=== PATIENT | female | born 1955 | race Caucasian/White ===

== ENCOUNTER 2021-02-01 17:34 | Emergency (ER) | payer MEDICARE ==
--- NOTE | 2021-02-01 18:27 | EDM.PDOC ---
ED HPI GENERAL MEDICAL PROBLEM - General Chief Complaint: Gastrointestinal Problem Stated Complaint: ULCERATIVE COLITIS FLARE UP Time Seen by Provider: 02/01/21 18:45 Source of Information: Reports: Patient History Limitations: Reports: No Limitations - History of Present Illness INITIAL COMMENTS - FREE TEXT/NARRATIVE: Patient presents emergency room today secondary to abdominal pain vomiting and diarrhea as well as chills she denies any fever she states that abdominal pain returned yesterday has had nausea vomiting and dry heaves since return of abdominal discomfort less than 10 episodes per patient's report poor intake patient states that she is stable still voiding without any difficulty patient states that currently she is not having any pain and when she had pain prior to arrival that really was not hurting much she would not rated. Of significance patient was seen 3 times in the ER in the [facility] once at [place] twice at [facility] before finally being admitted on the third ER visit at [facility] she was in the hospital per 's report for 1 week on IV antibiotics and IV fluids she was discussed charged on 17 August with extended prednisone taper that ended around 05 October. Other significant issues is that patient has ulcerative colitis for many years she has been receiving infusions currently her infusions are approximately every 2 months those are at [place] is a suburb of the [facility] they do not know the name of the infusion PMHulcerative colitis, appendix carcinoma (2012) Past surgical history an appendectomy Meds-lealda, 6-MP Allergies--PCN/Amox tob-former EtOH-wine on occassion drugs--denies Onset Date: 01/31/21 Duration: Waxing/Waning Location: Reports: Abdomen - Related Data Allergies Allergy/AdvReac Type Severity Reaction Status Date / Time Penicillins Allergy Hives Verified 02/01/21 17:51 Home Meds: Home Meds Mercaptopurine 50 gm PO DAILY 02/01/21 [History] Mesalamine [Lialda] 4 tab PO DAILY 02/01/21 [History] Past Medical History HEENT History: Reports: Impaired Vision Gastrointestinal History: Reports: Other (See Below) Other Gastrointestinal History: ulcerative colitis Genitourinary History: Reports: None [employer] History: Reports: Neurological History: Reports: Alzheimers Disease - Infectious Disease History Infectious Disease History: Reports: Chicken Pox, Measles, Mumps, Shingles - Past Surgical History Head Surgeries/Procedures: Reports: None HEENT Surgical History: Reports: None GI Surgical History: Reports: Appendectomy Female Surgical History: Reports: Hysterectomy Neurological Surgical History: Reports: None Dermatological Surgical History: Reports: None Social & Family History - Tobacco Use Tobacco Use Status *Q: Never Tobacco User Second Hand Smoke Exposure: No - Caffeine Use Caffeine Use: Reports: None - Recreational Drug Use Recreational Drug Use: No ED ROS GENERAL - Review of Systems Review Of Systems: Comprehensive ROS is negative, except as noted in HPI. Constitutional: Reports: Chills. Denies: Fever HEENT: Reports: No Symptoms Respiratory: Reports: No Symptoms Cardiovascular: Reports: No Symptoms Endocrine: Reports: No Symptoms GI/Abdominal: Reports: Abdominal Pain, Diarrhea, Nausea, Vomiting, Other (Not really decreased appetite or anorexia but inability to keep food or fluids down specifically states she has only been able to drink half a bottle of water today) : Reports: No Symptoms Musculoskeletal: Reports: No Symptoms Skin: Reports: No Symptoms Neurological: Reports: No Symptoms Psychiatric: Reports: No Symptoms Hematologic/Lymphatic: Reports: No Symptoms Immunologic: Reports: No Symptoms ED EXAM, GI/ABD - Physical Exam Exam: See Below Exam Limited By: No Limitations General Appearance: Alert, WD/WN, Mild Distress (She states she is just tired of being sick all the time) Eyes: Bilateral: Normal Appearance, EOMI Ears: Normal External Exam, Hearing Grossly Normal Nose: Normal Inspection Throat/Mouth: Normal Inspection, Normal Lips, Normal Gums, Normal Oropharynx, No Airway Compromise Head: Atraumatic, Normocephalic Neck: Normal Inspection, Supple, Non-Tender, Full Range of Motion. No: Lymphadenopathy (R), Lymphadenopathy (L), Thyromegaly Respiratory/Chest: No Respiratory Distress, Lungs Clear, Normal Breath Sounds, No Accessory Muscle Use, Chest Non-Tender Cardiovascular: Normal Peripheral Pulses, Regular Rate, Rhythm, No Edema, No Murmur GI/Abdominal Exam: Soft, Non-Tender, Abnormal Bowel Sounds (Hypoactive). No: Normal Bowel Sounds (Decreased bowel sounds), Guarding, Rigid, Rebound (Female) Exam: Deferred Rectal (Female) Exam: Deferred Back Exam: Normal Inspection, Full Range of Motion Extremities: Normal Inspection, Normal Range of Motion, Non-Tender, No Pedal Edema, Normal Capillary Refill Neurological: Alert, Oriented, CN II-XII Intact, Normal Cognition, Normal Gait, No Motor/Sensory Deficits Psychiatric: Normal Affect, Normal Mood Skin Exam: Warm, Dry, Intact, Normal Color Lymphatic: No Adenopathy Course - Vital Signs Text/Narrative:: 2031--abs have been reviewed noted for a WBC5.3 with 91% neutrophils and 5% bands otherwise CBC is unremarkable complete metabolic panel is within normal limits other than mild decrease in sodium and a137. She has received 1 L IV fluids Pepcid and Zofran at this time secondary to elevated neutrophils and bands will obtain obtain CT abd/pelvis given patient UC history and recent hospitalization in July 2020. Was discussed with patient and spouse at bedside who verbalized understanding agreement 2255--room to discuss with patient and spouse recommendation for admission for IV fluids IV antibiotics and IV steroids due to ulcerative colitis flare. Beds are available at this facility thus transfer is recommended. Given option of local facilities to include [facility] versus going back to the [facility] where they are from patient spouse both prefer to go back to [facility] where she has previously been admitted for the same. Discussed with them option for self transport versus ambulance and spouse states that he will take her down the [facility] if admission is available at that location [id number]--call to [place] transfer line, no beds available at [facility]--request that we hold patient in the ER and try again in the morning 2314--in room to d/w patient/spouse, she is stating she wants to just go home. d/w them issues of transfer/no beds available. after discussion have come to treatment agreement that she has agreed to stay until received dose of IV abx & steroid--then will d/c home with the oral ABX/steroids and they should contact GI tomorrow regarding tonights ER visit Last Recorded V/S: Last Vital Signs Temp 98.3 F 02/01/21 17:57 Pulse 105 H 02/01/21 20:37 Resp 16 02/01/21 17:57 BP 110/61 02/01/21 20:37 Pulse Ox 95 02/01/21 20:37 - Orders/Labs/Meds Orders: Active Orders 24 hr Category Date Time Status Iopamidol [Isovue-300 (61%)] Med 02/01/21 21:00 Active 100 ml IV . DIRECTED Levofloxacin/Dextrose 5%-Water [Levaquin in D5W 750 MG/ Med 02/01/21 22:38 Active 150 ML] 750 mg Premix Bag 1 bag IV ONETIME Ondansetron [Zofran] Med 02/01/21 18:51 Active 4 mg IVPUSH Q4H PRN Sodium Chloride 0.9% [Normal Saline] 1,000 ml Med 02/01/21 22:45 Active IV ASDIRECTED Sodium Chloride 0.9% [Normal Saline] 80 ml Med 02/01/21 21:00 Active IV ASDIRECTED Sodium Chloride 0.9% [Saline Flush] Med 02/01/21 18:51 Active 10 ml FLUSH ASDIRECTED PRN Saline Lock Insert [OM.PC] Routine Oth 02/01/21 18:51 Ordered Medication Orders Sodium Chloride (Normal Saline) 80 mls @ 3 mls/sec IV ASDIRECTED [facility] Last Admin: 02/01/21 21:03 Dose: 3 mls/sec Documented by: KIRK Levofloxacin/Dextrose 750 mg/ (Premix) 150 mls @ 100 mls/hr IV ONETIME ONE Stop: 02/02/21 00:07 Last Admin: 02/01/21 23:31 Dose: 100 mls/hr Documented by: VENU Sodium Chloride (Normal Saline) 1,000 mls @ 125 mls/hr IV ASDIRECTED [facility] Last Admin: 02/01/21 22:45 Dose: 125 mls/hr Documented by: VENU Iopamidol (Iopamidol 612 Mg/Ml 100 Ml Bottle) 100 ml IV . DIRECTED [facility] Last Admin: 02/01/21 21:03 Dose: 100 ml Documented by: KIRK Ondansetron HCl (Ondansetron 4 Mg/2 Ml Sdv) 4 mg IVPUSH Q4H PRN PRN Reason: Nausea/Vomiting Last Admin: 02/01/21 19:13 Dose: 4 mg Documented by: VENU Sodium Chloride (Sodium Chloride 0.9% 10 Ml Syringe) 10 ml FLUSH ASDIRECTED PRN PRN Reason: Keep Vein Open Last Admin: 02/01/21 19:13 Dose: 10 ml Documented by: VENU Labs: Laboratory Tests 02/01/21 02/01/21 02/01/21 Range/Units 18:50 18:50 20:06 WBC 5.3 (4.5-11.0) K/uL RBC 4.48 (3.30-5.50) M/uL Hgb 13.3 (12.0-15.0) g/dL Hct 41.1 (36.0-48.0) % MCV 92 (80-98) fL MCH 30 (27-31) pg MCHC 32 (32-36) % Plt Count 173 (150-400) K/uL Add Manual Diff Yes Neutrophils % (Manual) 91 H (36-66) % Band Neutrophils % 5 (5-11) % Lymphocytes % (Manual) 2 L (24-44) % Monocytes % (Manual) 2 (2-6) % Sodium 137 L (140-148) mmol/L Potassium 3.7 (3.6-5.2) mmol/L Chloride 100 (100-108) mmol/L Carbon Dioxide 35 H (21-32) mmol/L Anion Gap 5.7 (5.0-14.0) mmol/L BUN 12 (7-18) mg/dL Creatinine 0.9 (0.6-1.0) mg/dL Est Cr Clr Drug Dosing 54.88 mL/min Estimated GFR (MDRD) > 60 (>60) Glucose 116 H (74-106) mg/dL Calcium 8.5 (8.5-10.1) mg/dL Total Bilirubin 0.4 (0.2-1.0) mg/dL AST 18 (15-37) U/L ALT 28 (12-78) U/L Alkaline Phosphatase 66 (46-116) U/L Total Protein 7.4 (6.4-8.2) g/dL Albumin 3.2 L (3.4-5.0) g/dL Globulin 4.2 H (2.3-3.5) g/dL Albumin/Globulin Ratio 0.8 L (1.2-2.2) Amylase 26 (25-115) U/L Lipase 66 L (73-393) U/L Urine Color Yellow (YELLOW) Urine Appearance Slightly cloudy A (CLEAR) Urine pH 5.5 (5.0-8.0) Ur Specific [place] >= 1.030 (1.008-1.030) Urine Protein 100 H (NEGATIVE) mg/dL Urine Glucose (UA) Negative (NEGATIVE) mg/dL Urine Ketones Negative (NEGATIVE) mg/dL Urine Occult Blood Negative (NEGATIVE) Urine Nitrite Negative (NEGATIVE) Urine Bilirubin Negative (NEGATIVE) Urine Urobilinogen 0.2 (0.2-1.0) EU/dL Ur Leukocyte Esterase Negative (NEGATIVE) Urine RBC 0-5 (0-5) Urine WBC 0-5 (0-5) Ur Epithelial Cells Few Amorphous Sediment Rare Urine Bacteria Occasional Urine Mucus Numerous Urine Other See note Meds: Medications Generic Name Dose Route Start Last Admin Trade Name Latonya PRN Reason Stop Dose Admin Sodium Chloride 80 mls @ 3 mls/sec 02/01/21 21:00 02/01/21 21:03 Normal Saline IV 3 mls/sec ASDIRECTED KENDELL Administration Levofloxacin/Dextrose 750 mg/ 150 mls @ 100 mls/hr 02/01/21 22:38 02/01/21 23:31 Premix IV 02/02/21 00:07 100 mls/hr ONETIME ONE Administration Sodium Chloride 1,000 mls @ 125 mls/hr 02/01/21 22:45 02/01/21 22:45 Normal Saline IV 125 mls/hr ASDIRECTED KENDELL Administration Iopamidol 100 ml 02/01/21 21:00 02/01/21 21:03 Iopamidol 612 Mg/Ml 100 Ml Bottle IV 100 ml . DIRECTED KENDELL Administration Ondansetron HCl 4 mg 02/01/21 18:51 02/01/21 19:13 Ondansetron 4 Mg/2 Ml Sdv IVPUSH 4 mg Q4H PRN Administration Nausea/Vomiting Sodium Chloride 10 ml 02/01/21 18:51 02/01/21 19:13 Sodium Chloride 0.9% 10 Ml Syringe FLUSH 10 ml ASDIRECTED PRN Administration Keep Vein Open Discontinued Medications Generic Name Dose Route Start Last Admin Trade Name Latonya PRN Reason Stop Dose Admin Famotidine 20 mg 02/01/21 18:51 02/01/21 19:13 Famotidine 20 Mg/2 Ml Sdv IVPUSH 02/01/21 18:52 20 mg ONETIME ONE Administration Sodium Chloride 1,000 mls @ 999 mls/hr 02/01/21 18:51 02/01/21 18:59 Normal Saline IV 02/01/21 19:51 999 mls/hr .BOLUS ONE Administration Methylprednisolone Sodium Succinate 125 mg 02/01/21 22:40 02/01/21 23:27 Methylprednisolone Sodium Succinate 125 Mg/2 Ml Sdv IVPUSH 02/01/21 22:41 125 mg ONETIME ONE Administration - Radiology Interpretation Free Text/Narrative:: CT abdomen pelvis final radiology report impression colitis involving the descending colon to the rectum consistent with an ulcerative colitis flare to multiple hepatic cyst and a few small renal left renal cysts. Please see complete report for full details CT Results Date: 02/01/21 CT Results Time: 22:56 Departure - Departure Time of Disposition: 00:02 Disposition: Home, Self-Care 01 Condition: Good Clinical Impression: Acute ulcerative colitis - Discharge Information *PRESCRIPTION DRUG MONITORING PROGRAM REVIEWED*: Not Applicable *COPY OF PRESCRIPTION DRUG MONITORING REPORT IN PATIENT SAIMA: Not Applicable Instructions: Dehydration, Adult, [id number], Ulcerative Colitis, Adult Referrals: PCP,None [Primary Care Provider] - Forms: ED Department Discharge Additional Instructions: Antibiotics and prednisone have been ordered--we will need to take your prescriptions to the pharmacy to have filled Is recommended that you contact your fruit inspector tomorrow for ER follow up Clear liquid diet, advance slowly as tolerated Sepsis Event Note (ED) - Evaluation Sepsis Screening Result: No Definite Risk - Focused Exam Vital Signs: Vital Signs Temp Pulse Resp BP Pulse Ox 02/01/21 20:37 105 H 110/61 95 02/01/21 17:57 98.3 F 105 H 16 117/67 97 02/01/21 17:50 98.3 F 105 H 16 117/67 97 - My Orders Last 24 Hours: My Active Orders 02/01/21 18:51 Ondansetron [Zofran] 4 mg IVPUSH Q4H PRN Sodium Chloride 0.9% [Saline Flush] 10 ml FLUSH ASDIRECTED PRN Saline Lock Insert [OM.PC] Routine 02/01/21 21:00 Iopamidol [Isovue-300 (61%)] 100 ml IV . DIRECTED Sodium Chloride 0.9% [Normal Saline] 80 ml IV ASDIRECTED 02/01/21 22:38 Levofloxacin/Dextrose 5%-Water [Levaquin in D5W 750 MG/150 ML] 750 mg Premix Bag 1 bag IV ONETIME 02/01/21 22:45 Sodium Chloride 0.9% [Normal Saline] 1,000 ml IV ASDIRECTED - Assessment/Plan Last 24 Hours: My Active Orders 02/01/21 18:51 Ondansetron [Zofran] 4 mg IVPUSH Q4H PRN Sodium Chloride 0.9% [Saline Flush] 10 ml FLUSH ASDIRECTED PRN Saline Lock Insert [OM.PC] Routine 02/01/21 21:00 Iopamidol [Isovue-300 (61%)] 100 ml IV . DIRECTED Sodium Chloride 0.9% [Normal Saline] 80 ml IV ASDIRECTED 02/01/21 22:38 Levofloxacin/Dextrose 5%-Water [Levaquin in D5W 750 MG/150 ML] 750 mg Premix Bag 1 bag IV ONETIME 02/01/21 22:45 Sodium Chloride 0.9% [Normal Saline] 1,000 ml IV ASDIRECTED
[2021-02-01] MEDS ORDERED: Sodium Chloride 0.9% 10 ML Syringe FLUSH PRN (18:51)
[2021-02-01] MEDS ORDERED: Famotidine 20 MG/2 ML SDV IVPUSH ONE (18:51)
[2021-02-01] MEDS ORDERED: Ondansetron 4 MG/2 ML SDV IVPUSH PRN (18:51)
[2021-02-01] MEDS ORDERED: Sodium Chloride 0.9% 1,000 ML IV ONE (18:51)
[2021-02-01] MEDS ORDERED: Iopamidol 612 MG/ML 100 ML Bottle IV SCH (21:00)
[2021-02-01] MEDS ORDERED: Sodium Chloride 0.9% 80 ML IV SCH (21:00)
--- NOTE | 2021-02-01 22:18 | CRLCT ---
INDICATION: Abdominal pain. Elevated white count. History of ulcerative colitis TECHNIQUE: CT abdomen and pelvis acquired with IV contrast. 100 mL of Isovue-300 administered. COMPARISON: None available FINDINGS: Lower chest: Minor dependent changes. Liver: Multiple hepatic cysts. Spleen: Unremarkable. Pancreas: Unremarkable. Gallbladder and bile ducts: Possible gallbladder sludge. Adrenal glands: Unremarkable. Kidneys: A ptotic right kidney. No hydronephrosis. A small left renal cyst and additional subcentimeter low-density lesions, statistically small cysts as well. GI tract: No bowel obstruction. Apparent post appendectomy changes. Wall thickening of the descending colon to the rectum, consistent with colitis. Mild prominence of the transverse colon wall is probably related to underdistention. Vascular structures: Mild atherosclerotic changes. Lymph nodes: No abnormally enlarged lymph nodes. Sub centimeter retroperitoneal lymph nodes could be reactive. Miscellaneous: No significant free fluid or free air. A small fat containing supraumbilical ventral hernia. Pelvic Organs: Unremarkable. Bones: Disc protrusions in the mid to lower lumbar spine. IMPRESSION: Colitis involving the descending colon to the rectum, consistent with an ulcerative colitis flare. Multiple hepatic cysts and few small left renal cysts. Dictated by Steve Maldonado MD @ 02/01/2021 10:15:48 PM Please note that all CT scans at this facility use dose modulation, iterative reconstruction, and/or weight-based dosing when appropriate to reduce radiation dose to as low as reasonably achievable. Dictated by: Steve Maldonado MD @ 02/01/2021 22:16:29 (Electronically Signed)
[2021-02-01] MEDS ORDERED: Levofloxacin/Dextrose 5%-Water 750 MG in Premix Bag 1 BAG IV ONE (22:38)
[2021-02-01] MEDS ORDERED: methylPREDNISolone Sodium Succinate 125 MG/2 ML SDV IVPUSH ONE (22:40)
[2021-02-01] MEDS ORDERED: Sodium Chloride 0.9% 1,000 ML IV SCH (22:45)
== END 2021-02-02 00:49 | disposition home or self-care (01) ==
LOC: JP.ED 17:34
DX: K51.90 Ulcerative colitis, unspecified, without complications (principal); G30.9 Alzheimer's disease, unspecified; F02.80 Dementia in other diseases classified elsewhere, unspecified severity, without behavioral disturbance, psychotic disturbance, mood disturbance, and anxiety; Z88.0 Allergy status to penicillin; Z87.891 Personal history of nicotine dependence
CPT/HCPCS: 36415; 74177; 80053; 81001; 82150; 83690; 85025; 96365; 96375; 99284; J1956; J2405; J2930; J3490; J7030; Q9967

== ENCOUNTER 2024-03-16 14:57 | Emergency (ER) | payer MEDICARE, OTHER ==
[2024-03-16 16:26] LABS: APPEARANCE,URINE CLEAR (CLEAR); BILIRUBIN,URINE NEGATIVE (NEGATIVE); COLOR,URINE YELLOW (YELLOW); GLUCOSE,URINE NEGATIVE (NEGATIVE); KETONES,URINE NEGATIVE (NEGATIVE); LEUKOCYTE ESTERASE,URINE NEGATIVE (NEGATIVE); NITRITE,URINE NEGATIVE (NEGATIVE); OCCULT BLOOD,URINE TRACE-INTACT (NEGATIVE); PH,URINE 5.5 (5.0-8.0); PROTEIN,URINE NEGATIVE (NEGATIVE)
[2024-03-16 16:31] LABS: AMORPHOUS SEDIMENT,URINE NOT SEEN; BACTERIA,URINE RARE; EPITHELIAL CELLS,URINE RARE; MUCUS,URINE NOT SEEN; WBC,URINE NOT SEEN (0-5)
== END 2024-03-16 16:53 | disposition home or self-care (01) ==
LOC: JP.ED 14:57
DX: R35.0 Frequency of micturition (principal); Z88.0 Allergy status to penicillin; Z79.899 Other long term (current) drug therapy; Z90.49 Acquired absence of other specified parts of digestive tract; Z90.710 Acquired absence of both cervix and uterus
CPT/HCPCS: 81001; 87086; 99283